=== PATIENT | male | born 1960 | race Caucasian/White ===

== ENCOUNTER 2024-10-20 06:10 | Day surgery (SDC) | payer OTHER, SELFPAY ==
[2024-10-20] VITALS (15 sets, daily range): BP systolic 100–118; BP diastolic 61–84; BMI 29.9
[2024-10-20 07:02] LABS: Potassium 4.6 mmol/L (3.5-5.1)
--- NOTE | 2024-10-20 08:15 | ITS.CL.CATH ---
[facility] - Catheterization
Cardiac Catheterization
Procedure Report:
RIGHT AND LEFT HEART CATHETERIZATION
Date of Procedure: October 20, 2024
Primary Care Physician: Dr. Mark He
Primary Experimental Aircraft Mechanic: Dr. Cleveland Payne
Procedures performed:
1: Coronary angiography
2: Left ventricular hemodynamic assessment
3: Right heart catheterization
INDICATION: The patient is a 64-year-old man with prior heavy drinking and smoking, medical noncompliance, diabetes, hypertension, hyperlipidemia and atrial arrhythmias on Eliquis recently cardioverted approximately a month ago who is referred for
right and left heart cardiac catheterization. Ejection fraction by transthoracic echo on October 05 in atrial flutter was 20 to 25%. He has been taking his Lasix only daily instead of twice daily as ordered. He stopped his Eliquis a week ago in
anticipation for this procedure despite being told he only need to stop it for 2 days. He continues to report exertional dyspnea. He has been a non-smoker for more than 5 years now. He stopped drinking 9 months ago. Precath creatinine is also
mildly elevated at 1.4.
ACCESS: The patient was prepped and draped in usual sterile fashion. A 5 Portuguese sheath was placed in the right radial artery using the Seldinger over the wire technique. A 6 Portuguese sheath was then placed in the right common femoral vein using the
same technique. Ultrasound guidance was used for the venous access.
HEMODYNAMIC FINDINGS (mmHg):
RA(a,v,m): 32, 28, 25
RV(s/d,EDP): 70/12, 28
PA(s/d/m): 72/40, 52
PCWP(a,v,m): 35, 39, 35
LV(s/d,EDP): 103/21, 31
Ao(s/d,m): 105/79, 94
Oxygen Saturations (mg/dl):
PA: 60% on room air
LV: 96% on room air
Cardiac Output/Index (l/min / l/min/m2):
Estimated Igor Method: 3.2 / 1.7
VALVE HEMODYNAMICS:
No significant aortic or mitral valve stenosis.
ANGIOGRAPHIC FINDINGS:
Single-plane Left Ventriculography in HADDAD Projection: Not done
Coronary Angiography:
Dominance: Right
Left Main: Normal
Left Anterior Descending: The left anterior descending artery is a medium caliber vessel proximally and small caliber vessel distally. It gives rise to a small to medium caliber high diagonal and a second large diagonal branch which takes off from
the midportion. These vessels have very mild nonobstructive luminal irregularities with normal flow.
Left Circumflex: The circumflex is a medium caliber nondominant system that gives rise to 2 major obtuse marginal branches which are widely patent with normal flow.
Right Coronary: The right coronary artery is a large-caliber dominant vessel that gives rise to a large caliber posterior descending artery and large posterior left ventricular branch. These vessels are widely patent
Fluoroscopy Time (min): 8.5
Radiation Dose (mGy): 568
DAP (Gy.cm2): 38
Closure device: None. A TR band was applied for hemostasis at the right wrist. The femoral vein groin sheath will be pulled with manual pressure for hemostasis.
Complications: None.
ASSESSMENT:
1: Mild nonobstructive coronary artery disease. This is clearly a nonischemic cardiomyopathy.
2: Severely elevated pulmonary pressures with elevated left ventricular filling pressures consistent with congestive heart failure.
CONCLUSIONS and RECOMMENDATIONS:
1: Aggressive medical therapy for severe LV systolic dysfunction with congestive heart failure. The patient was given IV Lasix in the room and we will titrate up diuretics. Ultimately he needs the addition of spironolactone.
2: Encouraged medical compliance. Explained that this is the only way to make him feel better and ultimately affect his morbidity and mortality. Will increase diuretic dosing and encouraged him to be compliant with twice daily dosing. Check BMP
in 1 week with close clinical follow-up with Dr. Payne as scheduled.
Kamron Parsons M.D.
Copy to: Dr. Mark He
== END 2024-10-20 11:45 | disposition home or self-care (01) ==
LOC: CATH 06:10
PROVIDERS: ATTENDING PHYSICIAN Internal Medicine Interventional Cardiology; FAMILY PHYSICIAN Family Medicine; OTHER PHYSICIAN Internal Medicine Cardiovascular Disease
DX: I25.10 Atherosclerotic heart disease of native coronary artery without angina pectoris (principal); I42.8 Other cardiomyopathies; I11.0 Hypertensive heart disease with heart failure; I50.22 Chronic systolic (congestive) heart failure; R06.09 Other forms of dyspnea; K75.81 Nonalcoholic steatohepatitis (NASH); E11.9 Type 2 diabetes mellitus without complications; E78.5 Hyperlipidemia, unspecified; Z87.891 Personal history of nicotine dependence; Z79.01 Long term (current) use of anticoagulants; Z79.84 Long term (current) use of oral hypoglycemic drugs
CPT/HCPCS: 84132; 93460; C1769; C1894; Q9967